=== PATIENT | female | born 1995 | race Two or more races ===

== ENCOUNTER 2023-06-24 22:25 | Emergency (ER) | payer OTHER ==
[~2023-06-24] VITALS: Ht 149.9 cm; Wt 52.2 kg
[2023-06-24] MEDS ORDERED: OFL50TS OT (22:58)
[2023-06-24] MEDS ORDERED: AUG875T PO (22:58)
[2023-06-24] MEDS ORDERED: PRED20TA2 PO (22:58)
[2023-06-24] MEDS ORDERED: BENZLOZ2 MT (22:58)
[2023-06-24] MEDS: IBUPROFEN 600 MG TAB PO ONE (23:16)
[2023-06-24] MEDS: DexAMETHasone SOD PHOS 10MG/1ML VIAL INJ IM ONE (23:18)
[2023-06-25 00:20] VITALS: BP 169/98; PULSE 87; RESP 20; TEMP 98; O2SAT 100
== END 2023-06-25 00:59 | disposition home or self-care (01) ==
LOC: ER 22:25
DX: H66.91 Otitis media, unspecified, right ear (principal); J03.90 Acute tonsillitis, unspecified; R03.0 Elevated blood-pressure reading, without diagnosis of hypertension
CPT/HCPCS: 96372; 99283; J1100

== ENCOUNTER 2023-07-07 15:33 | Emergency (ER) | payer OTHER ==
[~2023-07-07] VITALS: Ht 149.9 cm; Wt 52.4 kg
[~2023-07-07 15:33] MED LIST: AUG875T PO; BENZLOZ2 MT; OFL50TS OT; PRED20TA2 PO
[2023-07-07 16:22] LABS: Basophils # (auto) 0.1 10 ^3/uL (0-0.2); Eosinophils # (auto) 0.1 10 ^3/uL (0-0.8); Hematocrit 38.3 % (36.0-46.0); Hemoglobin 12.3 g/dL (12.2-16.2); Lymphocytes # (auto) 2.1 10 ^3/uL (0.4-5.4); Lymphocytes % (auto) 29.3 % (10.0-50.0); Mean Corpuscular Hemoglobin 24.4 pg (28.0-32.0); Mean Corpuscular Volume 76.3 fL (80.0-100.0); Monocytes # (auto) 0.4 10 ^3/uL (0-1.3); Monocytes % (auto) 6.4 % (0.0-12.0); Neutrophils # (auto) 4.4 10 ^3/uL (1.6-8.6); Neutrophils % (auto) 62.3 % (37.0-80.0); Red Blood Cells 5.03 10^6/uL (4.0-5.20); Red Cell Distribution Width 16.2 % (11.8-14.3)
[2023-07-07 16:53] LABS: Albumin 4.7 g/dL (3.2-4.8); Alkaline Phosphatase 53 U/L (46-116); Anion Gap 7 (5-15); Aspartate Aminotransferase 11 U/L (13-40); BUN/Creatinine Ratio 12.2 (10.0-20.0); Blood Urea Nitrogen 9 mg/dL (9-23); Calcium 9.5 mg/dL (8.5-10.1); Carbon Dioxide 27 mmol/L (20-30); Chloride 105 mmol/L (98-107); Glucose 90 mg/dL (74-106); Potassium 3.6 mmol/L (3.5-5.1); Sodium 139 mmol/L (136-145)
[2023-07-07 16:54] LABS: Bilirubin, Total 0.4 mg/dL (0.2-1.0); Total Protein 7.3 g/dL (5.7-8.2)
[2023-07-07 17:06] LABS: Alanine Aminotransferase < 9 U/L (7-40)
[2023-07-07 17:39] LABS: Urine Bacteria NONE SEEN /hpf (None Seen); Urine Blood Negative /uL (Negative); Urine Clarity Clear (Clear); Urine Color Colorless (Yellow); Urine Protein, UAD Negative (Negative); Urine Urobilinogen Normal (Negative); Urine WBC <1 /hpf (0 - 5); Urine pH 7.5 (5.0-8.0)
[2023-07-07] MEDS ORDERED: ALPR0.25 PO (18:41)
[2023-07-07] MEDS ORDERED: BACL10TA PO (18:41)
[2023-07-07] MEDS: methylPREDNISolone SOD SUCC 125 MG/2 ML VL IM ONE (19:01)
[2023-07-07] MEDS: KETOROLAC TROMETH 30 MG/ML 1ML VIAL IM ONE (19:02)
[2023-07-07 19:07] VITALS: BP 143/97; PULSE 18; RESP 20; O2SAT 98
== END 2023-07-07 19:07 | disposition home or self-care (01) ==
LOC: ER 15:38
DX: G44.209 Tension-type headache, unspecified, not intractable (principal); M43.6 Torticollis; F41.9 Anxiety disorder, unspecified; Z32.02 Encounter for pregnancy test, result negative
CPT/HCPCS: 36415; 80053; 81001; 81025; 85025; 96372; 99284; J1885; J2930; J7030

== ENCOUNTER 2023-09-01 01:02 | Emergency (ER) | payer MEDICAID, OTHER ==
[~2023-09-01] VITALS: Ht 149.9 cm; Wt 52.4 kg
[~2023-09-01 01:02] MED LIST changes: +ALPR0.25 PO; +BACL10TA PO
[2023-09-01 01:42] VITALS: BP 111/62; PULSE 76; RESP 16; TEMP 98.2; O2SAT 99
== END 2023-09-01 05:14 | disposition left against medical advice (07) ==
LOC: ER 01:02
DX: R09.A2 Foreign body sensation, throat (principal); J02.9 Acute pharyngitis, unspecified; Z03.821 Encounter for observation for suspected ingested foreign body ruled out
CPT/HCPCS: 70360

== ENCOUNTER 2023-09-17 01:14 | Emergency (ER) | payer MEDICAID ==
[~2023-09-17] VITALS: Ht 149.9 cm; Wt 52.9 kg
[2023-09-17] MEDS ORDERED: FLUT1SPR5 (02:58)
[2023-09-17] MEDS ORDERED: [UNRECOGNIZED DRUG - CODE] PO (02:58)
[2023-09-17] MEDS ORDERED: ZOFR4T PO (02:58)
[2023-09-17] MEDS ORDERED: HYDR-4902 PO (02:58)
[2023-09-17] MEDS: AMOXICILLIN/CLAVUL 875 MG TAB PO ONE (05:51)
[2023-09-17] MEDS: HYDROcodone-ACET 5/325MG TAB PO ONE (05:52)
[2023-09-17] MEDS: ONDANSETRON ODT 4 MG TAB PO ONE (05:53)
[2023-09-17 06:20] VITALS: TEMP 98.7
[2023-09-17 06:30] VITALS: BP 149/87; PULSE 67; RESP 20; O2SAT 99
== END 2023-09-17 06:37 | disposition home or self-care (01) ==
LOC: ER 01:14
DX: J01.90 Acute sinusitis, unspecified (principal); R03.0 Elevated blood-pressure reading, without diagnosis of hypertension
CPT/HCPCS: 99284; Q0162

== ENCOUNTER 2023-09-23 14:23 | Emergency (ER) | payer MEDICAID ==
[~2023-09-23] VITALS: Ht 149.9 cm; Wt 52.4 kg
[~2023-09-23 14:23] MED LIST changes: +FLUT1SPR5; +HYDR-4902 PO; +ZOFR4T PO; +[UNRECOGNIZED DRUG - CODE] PO
[2023-09-23 15:37] VITALS: BP 153/99; PULSE 85; RESP 18; TEMP 98.7; O2SAT 98
== END 2023-09-23 16:30 | disposition home or self-care (01) ==
LOC: ER 14:23
DX: N60.02 Solitary cyst of left breast (principal)
CPT/HCPCS: 76642

== ENCOUNTER 2023-10-06 19:44 | Emergency (ER) | payer MEDICAID ==
[~2023-10-06] VITALS: Ht 149.9 cm; Wt 53.6 kg
[2023-10-06] MEDS ORDERED: ACET500T58 PO (22:49)
[2023-10-06] MEDS ORDERED: AMOX875T4 PO (22:49)
[2023-10-06] MEDS: ACETAMINOPHEN 325 MG TAB PO ONE (23:20)
[2023-10-07 00:20] VITALS: BP 135/78; PULSE 78; RESP 20; TEMP 98; O2SAT 98
[2023-10-07] MEDS: cefTRIAXone SOD 1,000 MG VL IM ONE (00:54)
== END 2023-10-07 01:13 | disposition home or self-care (01) ==
LOC: ER 19:44
DX: J01.80 Other acute sinusitis (principal); B96.89 Other specified bacterial agents as the cause of diseases classified elsewhere; R51.9 Headache, unspecified; Z79.899 Other long term (current) drug therapy
CPT/HCPCS: 70450; 96372; 99285; J0696

== ENCOUNTER 2023-10-27 14:47 | Emergency (ER) | payer MEDICAID ==
[~2023-10-27] VITALS: Ht 149.9 cm; Wt 52.3 kg
[~2023-10-27 14:47] MED LIST changes: +ACET500T58 PO; +AMOX875T4 PO
[2023-10-27] MEDS ORDERED: LEVO750T40 PO (16:50)
[2023-10-27 17:19] VITALS: BP 144/91; PULSE 68; RESP 20; TEMP 98.1; O2SAT 97
[2023-10-29] MEDS ORDERED: AUG875T PO (00:10)
== END 2023-10-27 17:27 | disposition home or self-care (01) ==
LOC: ER 14:47
DX: J32.9 Chronic sinusitis, unspecified (principal); Z79.899 Other long term (current) drug therapy